=== PATIENT | female | born 1955 | race Caucasian/White ===

== ENCOUNTER → 2016-10-06 | Outpatient (CLI) | payer MEDICARE ==
[~2016-10-06] MED LIST: ALPRAZOLAM0.5 MG PO; DOSS PO; LISINOPRIL-HCT1 EACH PO; LORTAB 5-325 M1 EACH PO; MS CONTIN15 MG PO; NEURONTIN400 MG PO; NORCO 10-325 T1 EACH PO; PHENERGAN 12.12.5 M1 PO; PROVENTIL HFA 61 INH INH; PROZAC40 MG PO; ROXICODONE5 MG PO; VICTOZA 1818 MG/3 ML SC; WELLBUTRIN SR150 MG PO
== END ==
LOC: KOH-I 15:56
DX: M79.642 Pain in left hand (principal); M85.842 Other specified disorders of bone density and structure, left hand; M85.642 Other cyst of bone, left hand
CPT/HCPCS: 73130

== ENCOUNTER → 2021-07-23 | Outpatient (CLI) | payer MEDICARE ==
[2021-07-23 15:32] LABS: HEMOGLOBIN 12.6 gm/dl (12.3-15.3); RED BLOOD COUNT 4.39 M/UL (4.00-5.10); WHITE BLOOD COUNT 9.5 K/UL (4.5-11.0)
== END ==
LOC: LAB 15:00
PROVIDERS: Nurse Practitioner Family
DX: E78.5 Hyperlipidemia, unspecified (principal); I10 Essential (primary) hypertension; R07.9 Chest pain, unspecified; R60.0 Localized edema; R06.02 Shortness of breath; R53.82 Chronic fatigue, unspecified
CPT/HCPCS: 36415; 80053; 80061; 84436; 84443; 85025; 85379; 85652; 86140